=== PATIENT | male | born 2000 | race Caucasian/White ===

== ENCOUNTER → 2021-12-01 | Day surgery (SDC) | payer OTHER ==
[~2021-12-01] VITALS: Ht 188 cm; Wt 120.2 kg
[~2021-12-01] MED LIST: ASPIRIN325 MG PO; DOCUSATE SODIU100 MG PO; IBU800 MG PO; OXY-IR 5MG5 MG PO; PANTOPRAZOLE SO40 MG PO
[2021-12-01 09:26] LABS: HCT 42.3 % (42.0-52.0); HGB 14.3 g/dl (13.2-18.0); MCH 28.8 pg (25.0-31.0); MCHC 33.8 g/dL (32.0-36.0); MCV 85.1 fL (78.0-100.0); MPV 9.6 fL (6.0-9.5); RBC 4.97 M/uL (4.70-6.00); RDW 12.5 % (11.5-14.0); WBC 7.4 K/uL (4.0-10.5)
== END | disposition home or self-care (01) ==
LOC: FAS 07:00
PROVIDERS: Legal Medicine
DX: S82.852A Displaced trimalleolar fracture of left lower leg, initial encounter for closed fracture (principal); S82.492A Other fracture of shaft of left fibula, initial encounter for closed fracture; S93.432A Sprain of tibiofibular ligament of left ankle, initial encounter; W20.8XXA Other cause of strike by thrown, projected or falling object, initial encounter; Y99.0 Civilian activity done for income or pay
CPT/HCPCS: 36415; 73600; C1713; J0690; J1100; J1170; J2250; J2405; J2704; J2795; J3010; J7120